=== PATIENT | male | born 1965 | race Caucasian/White ===

== ENCOUNTER 2017-10-04 10:50 | Inpatient (IN) | payer MEDICARE, OTHER ==
[~2017-10-04] VITALS: Ht 175.3 cm; Wt 77.1 kg
[~2017-10-04 10:50] MED LIST: CITA20TA19 PO; CLON-527 PO; CYCL-1 PO; DIVA500T9 PO; QUET200T30 PO; TEST200V10 IM; TOPI100T18 PO; TOPI25TA15 PO
[2017-10-04 11:15] LABS: BASOPHILS % (AUTO) 0.4 % (0-1); EOSINOPHILS # (AUTO) 0.4 X10'3 (0-0.9); EOSINOPHILS % (AUTO) 4.2 % (0-6); LYMPHOCYTES # (AUTO) 1.6 X10'3 (1.1-4.8); LYMPHOCYTES % (AUTO) 16.4 % (21-51); MEAN CORPUSCULAR HEMOGLOBIN 27.3 PG (27.0-31.0); MEAN CORPUSCULAR HGB CONC 33.3 % (33.0-36.5); MEAN CORPUSCULAR VOLUME 82.1 FL (78-98); MEAN PLATELET VOLUME 7.9 FL (7.4-10.4); MONOCYTES # (AUTO) 0.7 X10'3 (0-0.9); MONOCYTES % (AUTO) 6.6 % (2-12); NEUTROPHILS # (AUTO) 7.2 X10'3 (1.8-7.7); NEUTROPHILS % (AUTO) 72.4 % (42-75); PLATELET COUNT 202 X10'3 (140-440); RED BLOOD COUNT 5.12 X10'6 (4.70-6.10); RED CELL DISTRIBUTION WIDTH 13.6 % (11.5-14.5); WHITE BLOOD COUNT 9.9 X10'3 (4.5-11.0)
[2017-10-04 11:25] LABS: PARTIAL THROMBOPLASTIN TIME 25 SECONDS (22-32)
[2017-10-04 11:29] LABS: ALANINE AMINOTRANSFERASE 29 U/L (12-78); ALBUMIN 4.1 G/DL (3.4-5.0); ALBUMIN/GLOBULIN RATIO 1.2 (1.1-1.5); ALKALINE PHOSPHATASE 84 IU/L (46-116); ANION GAP 6 (8-16); ASPARTATE AMINO TRANSFERASE 15 U/L (10-37); BILIRUBIN,TOTAL 0.5 MG/DL (0.1-1.0); BLOOD UREA NITROGEN 11 MG/DL (7-18); BUN/CREATININE RATIO 12.4 (5.4-32.0); CALCIUM 9.5 MG/DL (8.5-10.1); CHLORIDE 107 MMOL/L (99-107); CREATININE 0.89 MG/DL (0.60-1.10); GLUCOSE 109 MG/DL (70-104); POTASSIUM 3.8 MMOL/L (3.5-5.1); SODIUM 141 MMOL/L (135-145); TOTAL CARBON DIOXIDE 27.7 MMOL/L (24-32); TOTAL PROTEIN 7.6 G/DL (6.4-8.2); eGFR > 90 ML/MIN
[2017-10-04] MEDS ORDERED: aspirin 81mg tab.chew PO ONE (11:40)
[2017-10-04] MEDS ORDERED: nitroGLYCERIN 0.4mg SUBLingual tab SL PRN ×2 (11:40→13:40)
[2017-10-04] MEDS ORDERED: cyclobenzaprine 10mg tablet PO PRN (13:35)
[2017-10-04] MEDS ORDERED: normal saline 1000ml 1,000 ML IVB ONE (13:36)
[2017-10-04] MEDS ORDERED: metoprolol tartrate 1mg/ml inj IV PRN (13:40)
[2017-10-04] MEDS ORDERED: HYDROcodone/acetaminophen 5mg/325mg tablet PO PRN (13:40)
[2017-10-04] MEDS ORDERED: diphenhydrAMINE 50 mg/ml inj IV PRN (13:40)
[2017-10-04] MEDS ORDERED: bisacodyl 10mg suppository rectal RC PRN (13:40)
[2017-10-04] MEDS ORDERED: acetaminophen 325mg tablet PO PRN ×2 (13:40)
[2017-10-04] MEDS ORDERED: aminophylline 250mg/10ml inj. IV PRN (13:40)
[2017-10-04] MEDS ORDERED: diphenhydrAMINE 25mg capsule PO PRN (13:40)
[2017-10-04] MEDS ORDERED: ondansetron/PF 4mg/2ml inj IV PRN (13:40)
[2017-10-04] MEDS ORDERED: mag hydrox/Alum hydrox/simeth 30ml oral suspension PO PRN (13:40)
[2017-10-04] MEDS ORDERED: regadenoson 0.4mg/5ml syringe IV ONE (13:40)
[2017-10-04] MEDS ORDERED: metoclopramide 5 mg/ml inj IV PRN (13:40)
[2017-10-04] MEDS ORDERED: magnesium hydroxide 30ml (MOM) UD suspension PO PRN (13:40)
[2017-10-04] MEDS ORDERED: acetaminophen 650mg rectal suppository RC PRN (13:40)
[2017-10-04] MEDS ORDERED: nicotine 21mg patch - 24 hr TD ONE (14:55)
[2017-10-04 14:58] LABS: PHOSPHORUS 3.8 MG/DL (2.3-4.5)
[2017-10-04 15:08] LABS: LIPASE 1191 U/L (73-393)
[2017-10-04 15:25] LABS: VALPROATE < 3.0 UG/ML (50-100)
[2017-10-04] MEDS: normal saline 1000ml 1,000 ML IV SCH ×2 (15:49→20:18)
[2017-10-04 16:15] LABS: HIV ANTIBODY 1&2 RAPID NON-REACTIVE (Neg)
[2017-10-04 17:00] VITALS: BP 128/91
[2017-10-04] MEDS: HYDROcodone/acetaminophen 10/325mg tab PO PRN (17:14)
[2017-10-04 19:00] VITALS: BP 109/70
[2017-10-04 19:47] LABS: URINE AMPHETAMINE SCREEN NEGATIVE (Neg); URINE BARBITUATE SCREEN NEGATIVE (Neg); URINE BENZODIAZEPINES SCREEN NEGATIVE (Neg); URINE CANNABINOID SCREEN NEGATIVE (Neg); URINE COCAINE SCREEN NEGATIVE (Neg); URINE METHADONE SCREEN NEGATIVE (Neg); URINE OPIATE SCREEN POSITIVE (Neg); URINE PHENCYCLIDINE SCREEN NEGATIVE (Neg)
[2017-10-04] MEDS: docusate sod 100mg capsule PO SCH (20:00)
[2017-10-04] MEDS: topiramate 25mg tablet PO SCH (20:00)
[2017-10-04] MEDS: enoxaparin 80mg/0.8ml syringe SUBCUT SCH (20:00)
[2017-10-04] MEDS: quetiapine 100mg tablet PO SCH (21:00)
[2017-10-04] MEDS: divalproex sod 250mg ER (24-hour) tablet PO SCH (21:00)
[2017-10-04] MEDS: topiramate 100mg tablet PO SCH (21:00)
[2017-10-04] MEDS ORDERED: temazepam 15mg capsule PO PRN (21:00)
[2017-10-04] MEDS: clonazePAM 1mg tablet PO SCH (21:00)
[2017-10-05] VITALS (26 sets, daily range): BP systolic 76–136; BP diastolic 31–84
[2017-10-05] MEDS: normal saline 1000ml 1,000 ML IV SCH ×4 (03:24→22:58)
[2017-10-05 06:15] LABS: BASOPHILS % (AUTO) 0.6 % (0-1); EOSINOPHILS # (AUTO) 0.7 X10'3 (0-0.9); EOSINOPHILS % (AUTO) 8.3 % (0-6); HEMATOCRIT 39.7 % (42.0-52.0); HEMOGLOBIN 12.8 g/dl (14.0-17.9); LYMPHOCYTES # (AUTO) 2.9 X10'3 (1.1-4.8); LYMPHOCYTES % (AUTO) 34.2 % (21-51); MEAN CORPUSCULAR HEMOGLOBIN 26.9 PG (27.0-31.0); MEAN CORPUSCULAR HGB CONC 32.2 % (33.0-36.5); MEAN CORPUSCULAR VOLUME 83.6 FL (78-98); MEAN PLATELET VOLUME 8.1 FL (7.4-10.4); MONOCYTES # (AUTO) 0.6 X10'3 (0-0.9); MONOCYTES % (AUTO) 6.8 % (2-12); NEUTROPHILS # (AUTO) 4.2 X10'3 (1.8-7.7); NEUTROPHILS % (AUTO) 50.1 % (42-75); PLATELET COUNT 169 X10'3 (140-440); RED BLOOD COUNT 4.75 X10'6 (4.70-6.10); RED CELL DISTRIBUTION WIDTH 13.8 % (11.5-14.5); WHITE BLOOD COUNT 8.4 X10'3 (4.5-11.0)
[2017-10-05 06:48] LABS: ALANINE AMINOTRANSFERASE 31 U/L (12-78); ALBUMIN 3.2 G/DL (3.4-5.0); ALBUMIN/GLOBULIN RATIO 1.1 (1.1-1.5); ALKALINE PHOSPHATASE 64 IU/L (46-116); ANION GAP 7 (8-16); ASPARTATE AMINO TRANSFERASE 20 U/L (10-37); BILIRUBIN,TOTAL 0.4 MG/DL (0.1-1.0); BLOOD UREA NITROGEN 10 MG/DL (7-18); CALCIUM 8.6 MG/DL (8.5-10.1); CHLORIDE 110 MMOL/L (99-107); CREATININE 0.83 MG/DL (0.60-1.10); GLUCOSE 93 MG/DL (70-104); LIPASE 99 U/L (73-393); POTASSIUM 3.6 MMOL/L (3.5-5.1); SODIUM 141 MMOL/L (135-145); TOTAL CARBON DIOXIDE 23.8 MMOL/L (24-32); TOTAL PROTEIN 6.2 G/DL (6.4-8.2); eGFR > 90 ML/MIN
[2017-10-05] MEDS: clonazePAM 1mg tablet PO SCH ×2 (08:00→13:00)
[2017-10-05] MEDS: pantoprazole 40mg Tablet.DR PO SCH (08:21)
[2017-10-05] MEDS: docusate sod 100mg capsule PO SCH ×2 (08:21→19:51)
[2017-10-05] MEDS: citalopram 20mg tablet PO SCH (08:21)
[2017-10-05] MEDS: topiramate 25mg tablet PO SCH ×2 (08:21→19:52)
[2017-10-05] MEDS: enoxaparin 80mg/0.8ml syringe SUBCUT SCH (08:22)
[2017-10-05] MEDS ORDERED: regadenoson 0.4mg/5ml syringe IV ONE (08:55)
[2017-10-05] MEDS ORDERED: aminophylline inj. 10 ML IV ONE (08:55)
[2017-10-05] MEDS ORDERED: heparin 1,000unit/ml 10ml vial 10 ML ONE (17:01)
[2017-10-05] MEDS ORDERED: LIDOcaine 1%/PF (10mg/ml) 5ml vial ONE (17:01)
[2017-10-05] MEDS ORDERED: IOHEXOL 350 MG/ML 150 ML injection IV ONE (17:01)
[2017-10-05] MEDS ORDERED: midazolam 2 mg/2 ml injection ONE (17:11)
[2017-10-05] MEDS ORDERED: fentaNYL/PF 50MCG/1 ML 2ML syringe ONE (17:11)
[2017-10-05] MEDS ORDERED: normal saline 1000ml 1,000 ML IV SCH (18:25)
[2017-10-05] MEDS ORDERED: OXAZEpam 15mg capsule PO PRN (18:25)
[2017-10-05] MEDS ORDERED: HYDROcodone/acetaminophen 5mg/325mg tablet PO PRN (18:25)
[2017-10-05] MEDS ORDERED: nitroGLYCERIN 0.4mg SUBLingual tab SL PRN (18:25)
[2017-10-05] MEDS ORDERED: ondansetron/PF 4mg/2ml inj IV PRN (18:25)
[2017-10-05] MEDS ORDERED: HYDROcodone/acetaminophen 10/325mg tab PO PRN (18:25)
[2017-10-05] MEDS ORDERED: proCHLORperazine 10 MG/2 ml inj IV PRN (18:25)
[2017-10-05] MEDS: HYDROcodone/acetaminophen 10/325mg tab PO PRN ×2 (18:35→22:36)
[2017-10-05] MEDS: topiramate 100mg tablet PO SCH (19:52)
[2017-10-05] MEDS: quetiapine 100mg tablet PO SCH (19:52)
[2017-10-05] MEDS: divalproex sod 250mg ER (24-hour) tablet PO SCH (21:14)
[2017-10-06 03:00] VITALS: BP 99/58
[2017-10-06] MEDS: normal saline 1000ml 1,000 ML IV SCH ×2 (05:38→12:11)
[2017-10-06] MEDS: HYDROcodone/acetaminophen 10/325mg tab PO PRN (05:54)
[2017-10-06 06:00] VITALS: BP 90/60
[2017-10-06 06:11] LABS: BASOPHILS # (AUTO) 0.1 X10'3 (0-0.2); BASOPHILS % (AUTO) 0.8 % (0-1); EOSINOPHILS # (AUTO) 0.5 X10'3 (0-0.9); EOSINOPHILS % (AUTO) 6.6 % (0-6); HEMATOCRIT 37.6 % (42.0-52.0); HEMOGLOBIN 12.2 g/dl (14.0-17.9); LYMPHOCYTES # (AUTO) 2.4 X10'3 (1.1-4.8); LYMPHOCYTES % (AUTO) 31.6 % (21-51); MEAN CORPUSCULAR HGB CONC 32.5 % (33.0-36.5); MEAN CORPUSCULAR VOLUME 83.1 FL (78-98); MEAN PLATELET VOLUME 8.2 FL (7.4-10.4); MONOCYTES # (AUTO) 0.5 X10'3 (0-0.9); MONOCYTES % (AUTO) 6.5 % (2-12); NEUTROPHILS # (AUTO) 4.2 X10'3 (1.8-7.7); NEUTROPHILS % (AUTO) 54.5 % (42-75); PLATELET COUNT 164 X10'3 (140-440); RED BLOOD COUNT 4.52 X10'6 (4.70-6.10); WHITE BLOOD COUNT 7.7 X10'3 (4.5-11.0)
[2017-10-06 06:23] LABS: ALANINE AMINOTRANSFERASE 19 U/L (12-78); ALBUMIN 3.3 G/DL (3.4-5.0); ALBUMIN/GLOBULIN RATIO 1.1 (1.1-1.5); ALKALINE PHOSPHATASE 63 IU/L (46-116); ANION GAP 5 (8-16); ASPARTATE AMINO TRANSFERASE 11 U/L (10-37); BILIRUBIN,TOTAL 0.6 MG/DL (0.1-1.0); BLOOD UREA NITROGEN 11 MG/DL (7-18); BUN/CREATININE RATIO 11.2 (5.4-32.0); CALCIUM 8.3 MG/DL (8.5-10.1); CHLORIDE 110 MMOL/L (99-107); CREATININE 0.98 MG/DL (0.60-1.10); GLUCOSE 87 MG/DL (70-104); POTASSIUM 3.6 MMOL/L (3.5-5.1); SODIUM 141 MMOL/L (135-145); TOTAL CARBON DIOXIDE 25.7 MMOL/L (24-32); TOTAL PROTEIN 6.2 G/DL (6.4-8.2); eGFR 81 ML/MIN
[2017-10-06 07:30] VITALS: BP 100/68
[2017-10-06] MEDS: docusate sod 100mg capsule PO SCH ×2 (07:33→07:34)
[2017-10-06] MEDS: topiramate 25mg tablet PO SCH (07:33)
[2017-10-06] MEDS: pantoprazole 40mg Tablet.DR PO SCH (07:33)
[2017-10-06] MEDS: citalopram 20mg tablet PO SCH (07:33)
[2017-10-06] MEDS ORDERED: atorvastatin 20mg tablet PO SCH (08:00)
[2017-10-06] MEDS ORDERED: metoprolol tartrate 12.5mg (1/2 tablet) PO SCH (08:00)
[2017-10-06] MEDS ORDERED: aspirin 81mg tab.chew PO SCH (08:30)
[2017-10-06 08:41] LABS: CHOL/HDL RATIO 5.8 (0.00-4.99); CHOLESTEROL 167 MG/DL (0-200); HDL CHOLESTEROL 29 MG/DL (35-60); LDL CHOLESTEROL 120 MG/DL (50-100); TRIGLYCERIDES 96 MG/DL (20-135)
[2017-10-06 11:00] VITALS: BP 114/73
[2017-10-06] MEDS ORDERED: ATOR20TA PO (13:13)
[2017-10-06] MEDS ORDERED: ASPI81TA52 PO (13:13)
[2017-10-06] MEDS ORDERED: METO-395 PO (13:13)
== END 2017-10-06 13:55 | disposition home or self-care (01) | DRG 287 ==
LOC: ER 10:51 → CANBEDREQ 13:21 → ED HOLD 13:38 → MED 3N 17:03 → PCU 3S 10-05 17:40
PROVIDERS: ADMIT Family Medicine; ATTEND Family Medicine
PROC: 4A023N7 Measurement of Cardiac Sampling and Pressure, Left Heart, Percutaneous Approach (ICD-10-PCS; principal; 2017-10-05)
PROC: B2111ZZ Fluoroscopy of Multiple Coronary Arteries using Low Osmolar Contrast (ICD-10-PCS; 2017-10-05)
PROC: B2151ZZ Fluoroscopy of Left Heart using Low Osmolar Contrast (ICD-10-PCS; 2017-10-05)
PROC: B41J1ZZ Fluoroscopy of Other Lower Arteries using Low Osmolar Contrast (ICD-10-PCS; 2017-10-05)
PROC: 4A02XM4 Measurement of Cardiac Total Activity, External Approach (ICD-10-PCS; 2017-10-05)
PROC: 3E073KZ Introduction of Other Diagnostic Substance into Coronary Artery, Percutaneous Approach (ICD-10-PCS; 2017-10-05)
DX: I25.110 Atherosclerotic heart disease of native coronary artery with unstable angina pectoris (principal); I48.0 Paroxysmal atrial fibrillation; E86.0 Dehydration; F31.9 Bipolar disorder, unspecified; F17.210 Nicotine dependence, cigarettes, uncomplicated; G40.909 Epilepsy, unspecified, not intractable, without status epilepticus; K21.9 Gastro-esophageal reflux disease without esophagitis; F41.9 Anxiety disorder, unspecified; R94.39 Abnormal result of other cardiovascular function study; Z79.899 Other long term (current) drug therapy; Z71.6 Tobacco abuse counseling
CPT/HCPCS: 36415; 71045; 78452; 80053; 80061; 80164; 80305; 83690; 83735; 83880; 84100; 84443; 84484; 85025; 85610; 85730; 86703; 87070; 93005; 93017; 93458; 96374; 99152; 99285; A4620; A6257; A6258; A9500; C1760; C1769; J0280; J1644; J1650; J2001; J2250; J2270; J3010; J7030; Q9967

== ENCOUNTER 2018-04-02 18:03 | Emergency (ER) | payer MEDICARE, OTHER ==
[~2018-04-02] VITALS: Ht 175.3 cm; Wt 79.5 kg
[~2018-04-02 18:03] MED LIST changes: +ASPI81TA52 PO; +ATOR20TA PO; -CITA20TA19 PO; -CLON-527 PO; -CYCL-1 PO; +DIPH25TA22 PO; -DIVA500T9 PO; +METO-395 PO; +METO25TA6 PO; +PANT-47 PO; +POLY119P2 PO; -QUET200T30 PO; -TEST200V10 IM; -TOPI100T18 PO; -TOPI25TA15 PO; +TRAZ-143 PO
[2018-04-02] MEDS ORDERED: CLIN300C70 PO (18:33)
[2018-04-02] MEDS ORDERED: TRAM50TA2 PO (18:33)
[2018-04-02] MEDS ORDERED: HYDROcodone/acetaminophen 10/325mg tab PO ONE ×2 (18:40)
[2018-04-02 18:43] VITALS: BP 120/67
== END 2018-04-02 18:47 | disposition home or self-care (01) ==
LOC: ER 18:03
DX: K08.89 Other specified disorders of teeth and supporting structures (principal); I48.91 Unspecified atrial fibrillation; K21.9 Gastro-esophageal reflux disease without esophagitis; Z79.82 Long term (current) use of aspirin; Z79.899 Other long term (current) drug therapy
CPT/HCPCS: 99283

== ENCOUNTER 2018-06-29 00:43 | Emergency (ER) | payer MEDICARE, OTHER ==
[~2018-06-29] VITALS: Ht 175.3 cm; Wt 74.8 kg
[~2018-06-29 00:43] MED LIST changes: -TRAZ-143 PO; +TRAZ-218 PO
[2018-06-29 01:16] LABS: BASOPHILS % (AUTO) 1.2 % (0-1); EOSINOPHILS % (AUTO) 8.7 % (0-6); HEMATOCRIT 39.8 % (42.0-52.0); HEMOGLOBIN 13.3 g/dl (14.0-17.9); LYMPHOCYTES % (AUTO) 27.4 % (21-51); MEAN CORPUSCULAR HEMOGLOBIN 27.9 PG (27.0-31.0); MEAN CORPUSCULAR HGB CONC 33.5 % (33.0-36.5); MEAN CORPUSCULAR VOLUME 83.4 FL (78-98); MEAN PLATELET VOLUME 8.1 FL (7.4-10.4); MONOCYTES % (AUTO) 6.4 % (2-12); NEUTROPHILS % (AUTO) 56.3 % (42-75); PLATELET COUNT 180 X10'3 (140-440); RED BLOOD COUNT 4.78 X10'6 (4.70-6.10); RED CELL DISTRIBUTION WIDTH 13.2 % (11.5-14.5); WHITE BLOOD COUNT 9.7 X10'3 (4.5-11.0)
[2018-06-29 01:17] LABS: BASOPHILS # (AUTO) 0.1 X10'3 (0-0.2); EOSINOPHILS # (AUTO) 0.8 X10'3 (0-0.9); LYMPHOCYTES # (AUTO) 2.6 X10'3 (1.1-4.8); MONOCYTES # (AUTO) 0.6 X10'3 (0-0.9); NEUTROPHILS # (AUTO) 5.6 X10'3 (1.8-7.7)
[2018-06-29 01:26] LABS: ALANINE AMINOTRANSFERASE 23 U/L (12-78); ALBUMIN 3.9 G/DL (3.4-5.0); ALBUMIN/GLOBULIN RATIO 1.3 (1.1-1.5); ALKALINE PHOSPHATASE 62 IU/L (46-116); ANION GAP 11 (8-16); ASPARTATE AMINO TRANSFERASE 15 U/L (10-37); BILIRUBIN,TOTAL 0.4 MG/DL (0.1-1.0); BLOOD UREA NITROGEN 14 MG/DL (7-18); BUN/CREATININE RATIO 17.7 (5.4-32.0); CALCIUM 9.2 MG/DL (8.5-10.1); CHLORIDE 105 MMOL/L (99-107); CREATININE 0.79 MG/DL (0.60-1.10); GLUCOSE 99 MG/DL (70-104); SODIUM 142 MMOL/L (135-145); TOTAL CARBON DIOXIDE 25.8 MMOL/L (24-32); TOTAL PROTEIN 6.9 G/DL (6.4-8.2); eGFR > 90 ML/MIN
[2018-06-29 01:30] LABS: PARTIAL THROMBOPLASTIN TIME 25 SECONDS (22-32)
[2018-06-29 01:40] VITALS: BP 117/75
[2018-06-29] MEDS ORDERED: acetaminophen 325mg tablet PO ONE (01:55)
== END 2018-06-29 02:05 | disposition home or self-care (01) ==
LOC: ER 00:44
DX: R07.89 Other chest pain (principal); R10.84 Generalized abdominal pain; M54.9 Dorsalgia, unspecified; I48.91 Unspecified atrial fibrillation; K21.9 Gastro-esophageal reflux disease without esophagitis; Z79.82 Long term (current) use of aspirin
CPT/HCPCS: 36415; 71045; 80053; 84484; 85025; 85610; 85730; 93005; 99285

== ENCOUNTER 2018-07-13 14:02 | Emergency (ER) | payer MEDICARE, OTHER ==
[~2018-07-13] VITALS: Ht 175.3 cm; Wt 74.6 kg
[2018-07-13 14:20] VITALS: BP 124/78
== END 2018-07-13 14:48 | disposition home or self-care (01) ==
LOC: ER 14:02
DX: L02.412 Cutaneous abscess of left axilla (principal); Z98.890 Other specified postprocedural states; Z79.82 Long term (current) use of aspirin; Z79.899 Other long term (current) drug therapy
CPT/HCPCS: 99281

== ENCOUNTER 2018-08-15 12:25 | Emergency (ER) | payer MEDICARE, OTHER ==
[~2018-08-15] VITALS: Ht 175.3 cm; Wt 75.0 kg
[2018-08-15 12:54] VITALS: BP 100/52
[2018-08-15] MEDS ORDERED: ORPH100T2 PO (14:25)
[2018-08-15] MEDS ORDERED: diazepam 5mg tablet PO ONE (14:25)
[2018-08-15] MEDS ORDERED: IBUP-1985 PO (14:25)
[2018-08-15] MEDS ORDERED: ketorolac tromethamine 15mg/ml inj. IM ONE (14:25)
== END 2018-08-15 14:41 | disposition home or self-care (01) ==
LOC: ER 12:25
DX: M54.5 Low back pain (principal); K21.9 Gastro-esophageal reflux disease without esophagitis; F31.9 Bipolar disorder, unspecified; I48.91 Unspecified atrial fibrillation; Z79.82 Long term (current) use of aspirin
CPT/HCPCS: 96372; 99283; J1885

== ENCOUNTER 2018-10-23 18:42 | Emergency (ER) | payer MEDICARE, OTHER ==
[~2018-10-23] VITALS: Ht 175.3 cm; Wt 77.0 kg
[~2018-10-23 18:42] MED LIST changes: +IBUP-1985 PO; +ORPH100T2 PO
[2018-10-23 18:45] VITALS: BP 110/72
[2018-10-23] MEDS ORDERED: diazepam 5mg tablet PO ONE (19:35)
[2018-10-23] MEDS ORDERED: ketorolac trometh inj. 60 MG/2 ML VIAL IM ONE (19:35)
[2018-10-23] MEDS ORDERED: HYDROcodone/acetaminophen 10/325mg tab PO ONE (19:35)
[2018-10-23] MEDS ORDERED: DIAZ5TAB PO (19:39)
[2018-10-25] MEDS ORDERED: ONDA4TAB12 PO (23:44)
== END 2018-10-23 20:04 | disposition home or self-care (01) ==
LOC: ER 18:42
DX: G89.29 Other chronic pain (principal); M54.42 Lumbago with sciatica, left side; R10.9 Unspecified abdominal pain; I48.91 Unspecified atrial fibrillation; K21.9 Gastro-esophageal reflux disease without esophagitis; Z98.890 Other specified postprocedural states; Z86.69 Personal history of other diseases of the nervous system and sense organs; Z79.82 Long term (current) use of aspirin; Z79.899 Other long term (current) drug therapy
CPT/HCPCS: 96372; 99283; J1885

== ENCOUNTER → 2025-06-04 | Emergency (ER) | payer MEDICARE, MEDICAID ==
[~2025-06-04] VITALS: Ht 175.3 cm; Wt 76.0 kg
[~2025-06-04] MED LIST changes: +CYCL-1 PO; +DIAZ5TAB PO; -IBUP-1985 PO; +IBUP600T52 PO; +LIDO-52 TOP; +LOP25T PO; -METO25TA6 PO; +ONDA-243 PO; -ORPH100T2 PO; +ORPH100T4 PO; -TRAZ-218 PO; +TRAZ-251 PO
[2025-06-04 09:24] VITALS: BP 121/77; PULSE 74; RESP 16; TEMP 98.1; O2SAT 98
--- NOTE | 2025-06-04 09:56 | Physician Documentation ---
History of Present Illness ~ Chief Complaint: Medical Clearance Stated Complaint: MED CLEARANCE Time Seen by MD: 09:53 Primary Medical Doctor: [facility] HPI 59-year-old male who is homeless presents requesting medical clearance for ongoing alcohol usage. He states he drinks a six pack of beer a day. Last drink was yesterday. Denies any severe withdrawals Tetanus within 5 years?: Yes Medication Reconciliation Allergies: Coded Allergies: No Known Allergies (Unverified , 06/04/25) Scheduled Aspirin (Aspirin EC), 1 TABLET PO DAILY Atorvastatin Calcium (Lipitor), 1 TAB PO DAILY Diazepam (Valium), 1 TAB PO TID PRN Diphenhydramine HCl (Sleep Tabs), 2 TAB PO HS, (Reported) Ibuprofen (Ibuprofen), 1 TAB PO Q8H Lidocaine (Lidoderm), 1 PATCH TOP DAILY Metoprolol Succinate (Metoprolol Succinate), 12.5 MG PO DAILY Metoprolol Tartrate* (Lopressor tablet*), 1 TABLET PO BID Orphenadrine Citrate (Norflex), 1 TAB PO Q12H PRN Pantoprazole Sodium (PROTONIX tablet), 1 TAB PO DAILY Polyethylene Glycol 3350 (Miralax), 1 SCOOP PO DAILY Trazodone HCl (Trazodone HCl), 1 TAB PO HS Scheduled PRN Cyclobenzaprine* (Cyclobenzaprine*), 1 TABLET PO Q8H PRN for muscle spasms ONDANSETRON ODT 4mg tablet (Ondansetron Odt), 1 TABLET PO Q6H PRN for nausea/vomiting Past Medical History Past Medical History: Seizures, Atrial Fibrillation, GERD, Hernia, Chronic Back Pain, Bipolar Past Surgical History: brain surgery, other Other Past Surgical History: hernia repair Alcohol Use: Occasionally Drug Use: none Lives with: Family Lives In: Home Occupation: employed Review of Systems All Other Systems at this time: Reviewed and Negative ROS As stated above in the HPI, otherwise all systems are reviewed and negative. Constitutional: Denies: chills, fever, weakness Eyes: Denies: pain, blurred vision ENT: Denies: ear pain, nose pain, throat pain, mouth pain Respiratory: Denies: cough, shortness of breath Cardiovascular: Denies: chest pain, palpitations Gastrointestinal: Denies: abdominal pain, nausea, vomiting Genitourinary: Denies: burning, dysuria Male Genitalia: Denies: penile discharge, testicular pain Neurological: Denies: headache, dizziness Musculoskeletal: Denies: pain, swelling Integumentary: Denies: rash, lesions Allergic/Immunologic: Denies: hives, itching Hematologic/Lymphatic: Denies: no symptoms reported Psychiatric: Denies: depression, anxiety Physical Exam Vital Signs: Temperature: 98.1, Source: Temporal, Heart Rate: 74, Respiratory Rate: 16, BP: 121/77, Pulse Oximetry: 98, Weight: 76.000 Oxygen Flow Rate: 0 Physical Exam General: Alert, no apparent distress. Respiratory: Lungs clear, no respiratory distress. Cardiovascular: Regular rate and rhythm, no murmurs. Gastrointestinal: Soft, nontender, nondistended. Bowels sounds present. Neurologic: Oriented x4. Psychiatric: Normal mood and affect. Skin: Normal color, warm and dry. No edema, no ecchymosis. Progress Results/Orders Results/Orders Vital Signs 06/04/25 09:24 Temp 98.1 Pulse 74 Resp 16 B/P (MAP) 121/77 Pulse Ox 98 O2 Flow Rate 0 Medical Decision Making Findings Medically cleared for alcohol recovery program Differential Dx:Considerations: Include: Intoxication-Alcohol, Intoxication- Other drug, Personality disorder, Substance abuse disorder, Acute delirium, Closed head injury, Cervical spine injury, Skull fracture, Fracture(s), Abrasion, Contusion, Foreign body, Hematoma, Laceration, Alcohol withdrawl syndrom, Encephalopathy, Hepatitis, Medically stable, Other Departure Disposition: 01 HOME / SELF CARE / HOMELESS Impression: Primary Impression: General medical exam Additional Impression: Alcohol abuse Condition: Stable Additional Instructions: Medically cleared to go to [facility] program Signature Scribe Signature: v Attestation: Scribed for Jonas Tineo Manager Mechanical by Jonas Monsivais NP . 06/04/25 14:45 JONAS TINEO NP Jun 04, 2025 09:56
== END | disposition home or self-care (01) ==
LOC: ER 15:08
DX: Z00.8 Encounter for other general examination (principal); F10.10 Alcohol abuse, uncomplicated; F31.9 Bipolar disorder, unspecified; I48.91 Unspecified atrial fibrillation; Z98.890 Other specified postprocedural states; Z79.82 Long term (current) use of aspirin; Y90.9 Presence of alcohol in blood, level not specified
CPT/HCPCS: 99281; 99282